=== PATIENT | female | born 1980 | race Caucasian/White ===

== ENCOUNTER 2024-10-20 17:52 | Emergency (ER) | payer OTHER, SELFPAY ==
[2024-10-20 18:03] VITALS: BP 128/72; PULSE 59; RESP 18; TEMP 36.4; O2SAT 96
--- NOTE | 2024-10-20 18:32 | ED.GENADUL_ITS ---
Discharge Plan Disposition Patient Disposition: Home Condition: Improving Discharge Details Clinical Impression: Corneal abrasion, right ED Provider: Dannie Rodriguez Meds and New Rx's Prescriptions: New erythromycin 5 mg/gram (0.5 %) ointment 0.5 inch ophthalmic (eye) TID 3 Days Qty: 3.5 0RF Discharge Instructions Instructions: Corneal Abrasion ED Discharge Data Discharge Physician: Dannie Rodriguez [facility] General Date/Time Provider Initiated Documentation: 10/20/24 18:32 . HPI Narrative: Patient presents emergency department after he felt a wood chip flew into his right eye earlier this morning like around 11 AM. 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 Said that later in the day he started seeing blurry and his right eye turned red and painful and comes to the ED for evaluation. Reports blurry vision and burning in his right eye with a sensation of a foreign body Related Data Home Medications ?Medication ?Instructions ?Recorded ?Confirmed erythromycin 5 mg/gram (0.5 %) eye 0.5 inch ophthalmic (eye) TID 3 10/20/24 ointment days #3.5 grams Previous Rx's ?Medication ?Instructions ?Recorded erythromycin 5 mg/gram (0.5 %) eye 0.5 inch ophthalmic (eye) TID 3 10/20/24 ointment days #3.5 grams Allergies Allergy/AdvReac Type Severity Reaction Status Date / Time No Known Allergies Allergy Unverified 10/20/24 18:08 General Stated Complaint: EyeProblem DARIUS: 4 Review of Systems Narrative: Review of Systems: Constitutional: No fevers, chills, sweats ENT: No ear pain, nasal congestion, sore throat Respiratory: No shortness of breath, cough Cardiovascular: No Chest pain, palpitations, syncope Gastrointestinal: No nausea, vomiting, diarrhea Genitourinary: No hematuria Abel/Lymph: Negative for bruising tendency, swollen lymph glands Endocrine: Negative for excessive thirst, excessive hunger Musculoskeletal: No back pain, neck pain, joint pain, muscle pain, decreased ran ge of motion Integumentary: No rash, pruritus, abrasions Neurologic: Alert & oriented X 4 Psychiatric: No anxiety, depression Exam Narrative Exam Narrative: Exam; vitals signs as reported above normal Constitutional; In no acute distress, afebrile General: cooperative, healthy appearing, comfortable and no acute distress HEENT: Head: normal to inspection, no palpable skull fracture and normocephalic atraumatic Eyes: : appearance normal, both eyes and all related structures EOM intact bilaterally slit-lamp examination of the right eye shows conjunctival hyperemia but no foreign bodies visualized and with fluorescein stain you can see a linear corneal abrasion in the middle of the cornea Pupils: PERRL : conjunctiva normal Direct ophthalmoscopy: normal light reflex, normal conjunctiva, normal visual acuity Ears: Normal TM, normal external canal Nose: normal no rhinorreha Neck no JVD, supple non tender Neck: normal visual inspection, full ROM and no lymphadenopathy Chest: normal inspection of the chest Respiratory : normal respiratory effort and able to speak in complete sentences no wheezing no rales Cardio Rate: regular rate, rhythm: regular rhythm normal heart sounds S1 and S2 no murmurs, gallops, or rubs GI : normal to inspection, normal bowel sounds, soft, non tender, non distended, no organomegaly Neuro: patient alert oriented x 4 and no meningeal signs, Cranial Nerves: CN's II-XI intact bilaterally, Cognition: normal cognition, Speech: speech normal, G ait: normal gait, Depp tendon reflexes normal 2+ muscle strength 5/5 bilaterally Extremities, no edema, full range of motion, normal strength Course Vital Signs Vital signs: Vital Signs Temperature 36.4 C L 10/20/24 18:03 Pulse 59 L 10/20/24 18:03 Respiratory Rate 18 10/20/24 18:03 Blood Pressure 128/72 10/20/24 18:03 Pulse Oximetry 96 10/20/24 18:03 Temperature 36.4 C L 10/20/24 18:03 Pulse 59 L 10/20/24 18:03 Respiratory Rate 18 10/20/24 18:03 Blood Pressure 128/72 10/20/24 18:03 Pulse Oximetry 96 10/20/24 18:03 Oxygen Delivery Method Room Air 10/20/24 18:03 Oxygen Flow Rate 0 10/20/24 18:03 Pain Level 2 10/20/24 18:03 Medical Decision Making MDM: Summary: Patient sustained trauma to his right eye earlier this morning probably with a wood chip he comes in with a foreign body sensation painful right eye and under slipped on examination he has no foreign body but has a corneal abrasion. He was given erythromycin ointment and will need to follow-up with his PCP or return to the emergency department if is not improved Data Review Analysis All the data on this patient was reviewed by me including laboratory and imaging studies as well as bedside studies performed by me Independent review of Studies Imaging Lab: Risk Stratification: Patient with a superficial corneal abrasion who will be treated with erythromycin ointment Differential Diagnosis: 1. Corneal abrasion 2. Eye foreign body 3. Corneal ulcer 4. 5. Consultants: Shared disposition: Patient is send to disposition will follow accordingly Impression: PFSH All Active Problems (Updated 10/20/24 @ 19:04 by Dannie Rodriguez MD) Corneal abrasion, right (Acute) Social History Smoking/Tobacco Use Status: Never Smoking risk assessment performed?: Yes Alcohol Intake: never Substance use type: does not use Housing: house Do you feel safe at home: Yes Do you feel safe in your relationship?: Yes
[2024-10-20] MEDS: Fluorescein STRIPS 100/BOX 1 MG (19:03)
[2024-10-20] MEDS: Erythromycin Ophth Oint 3.5 GM TUBE (19:03)
[2024-10-20] MEDS: Tetracaine 0.5% 4 ML BTL (19:03)
[2024-10-20 19:11] VITALS: BP 149/91; PULSE 68; RESP 14; O2SAT 100
== END 2024-10-20 19:15 | disposition home or self-care (01) ==
LOC: ER 19:10
PROVIDERS: Emergency Provider Emergency Medicine Emergency Medical Services
DX: S05.01XA Injury of conjunctiva and corneal abrasion without foreign body, right eye, initial encounter (principal); Y93.H2 Activity, gardening and landscaping; Y92.017 Garden or yard in single-family (private) house as the place of occurrence of the external cause; Y99.0 Civilian activity done for income or pay
CPT/HCPCS: 99283